=== PATIENT | male | born 1955 | race African-American/Black ===

== ENCOUNTER 2018-11-30 10:38 | Inpatient (IN) ==
[2018-11-30 11:10] LABS: BASO# 0.02 X1000 (0.0-0.2); BASO% 0.1 % (0.0-0.8); HEMATOCRIT 46.3 % (42.0-52.0); HEMOGLOBIN 15.4 g/dL (14.0-18.0); IMM GRAN# 0.04 X1000 (0.0-0.04); IMM GRAN% 0.2 % (0.0-0.5); LYMPH# 1.26 X1000 (1.2-3.4); LYMPH% 7.3 % (20.5-51.1); MCH 29.5 PG (27-31); MCHC 33.3 g/dL (33-37); MCV 88.7 FL (81-99); MONO# 0.84 X1000 (0.11-0.59); MONO% 4.9 % (1.7-9.3); MPV 12.5 FL (7.4-10.4); NEUT# 15.14 X1000 (1.4-6.5); NEUT% 87.5 % (42.2-75.2); PLT 228 X1000 (130-400); RBC 5.22 XMIL (4.7-6.1); RDW 13.6 % (11.5-14.5)
[2018-11-30] MEDS ORDERED: NS 1,000 ML IV ONE ×2 (11:17→11:57)
--- NOTE | 2018-11-30 11:27 | Diag Imaging Result Doc PS360 ---
EXAM: CHEST-2 VIEWS HISTORY: wt loss new onset diabetes TECHNIQUE: Chest two views COMPARISON: 09/06/2014 FINDINGS: The lungs are well expanded. The heart is not enlarged. The vessels are not distended. There are no infiltrates. No pleural effusions. IMPRESSION: No acute abnormality. Electronically signed by Deep Jenkins 11/30/2018 11:25 AM
[2018-11-30 11:30] LABS: SEGS 88 % (42-75)
[2018-11-30 11:31] LABS: LYMPHS 8 % (21-51); MONO 4 % (1-9)
[2018-11-30 11:38] LABS: ALBUMIN 3.7 g/dL (3.5-5.0); CALCIUM 9.9 mg/dL (8.8-10.2); CREATININE 2.8 mg/dL (0.7-1.2); POTASSIUM 5.1 mmol/L (3.5-5.1); TOTAL BILIRUBIN 0.7 mg/dL (0.20-1.00); TOTAL PROTEIN 7.9 g/dL (6.3-8.3)
[2018-11-30 11:40] LABS: BILIRUBIN URINE NEGATIVE (NEGATIVE); BLOOD URINE NEGATIVE (NEGATIVE); CLARITY CLEAR (CLEAR); COLOR YELLOW; KETONE URINE 1+(Small) mg/dL (NEGATIVE); LEUKOCYTES URINE NEGATIVE (NEGATIVE); NITRITE URINE NEGATIVE (NEGATIVE); PROTEIN URINE NEGATIVE (NEGATIVE); UROBILINOGEN URINE NORMAL
[2018-11-30 11:41] LABS: URINE EPITHELIAL CELLS <10 /HPF (<10); URINE SOURCE CLEAN CATCH
[2018-11-30 11:45] LABS: ALLEN TEST NO; BLOOD TYPE VENOUS; pH(98.6) 7.34 (7.35-7.45)
[2018-11-30] MEDS ORDERED: HUMALOG (PARKWAY) IV ONE (11:51)
[2018-11-30] MEDS ORDERED: HUMULIN R (PARKWAY) 100 UNITS in NS 100 ML IV SCH (12:00)
[2018-11-30 12:18] LABS: CHOLESTEROL 277 mg/dL (0-200); HDL 52 mg/dL (35-55); HEMOGLOBIN A1C 14.6 % (4.8-6.0); LDL 196 mg/dL; TRIGLYCERIDES 147 mg/dL (39-160); VLDL 29 mg/dL
[2018-11-30 13:46] LABS: CALCIUM 9.3 mg/dL (8.8-10.2); CREATININE 2.8 mg/dL (0.7-1.2); MAGNESIUM 3.4 mg/dL (1.5-2.7); PHOSPHORUS 3.8 mg/dL (2.7-4.5); POTASSIUM 4.1 mmol/L (3.5-5.1)
[2018-11-30] MEDS ORDERED: NS 1,000 ML ONE (14:14)
[2018-11-30] MEDS ORDERED: D50W SYRINGE IV PRN (14:17)
[2018-11-30] MEDS ORDERED: POTASSIUM CHLORIDE 40 MEQ/SWI 40 MEQ/100 ML IVPB IV PRN (14:17)
[2018-11-30] MEDS ORDERED: POTASSIUM CHLORIDE 20% LIQUID PO PRN (14:17)
[2018-11-30] MEDS ORDERED: POTASSIUM CHLORIDE 10% LIQUID PO PRN (14:17)
[2018-11-30] MEDS ORDERED: HUMULIN R 100 UNIT in NS 99 ML IV SCH (14:17)
[2018-11-30] MEDS ORDERED: POTASSIUM CHLORIDE 20 MEQ/SWI 20 MEQ/100 ML IVPB IV PRN (14:17)
[2018-11-30] MEDS ORDERED: ZOFRAN IV PRN (14:59)
[2018-11-30] MEDS ORDERED: MYCELEX TROCHE PO SCH (15:00)
[2018-11-30] MEDS: NS 1,000 ML IV SCH ×5 (15:00→21:54)
[2018-11-30] MEDS: MYCELEX TROCHE PO SCH ×3 (15:34→21:54)
[2018-11-30] MEDS: SODIUM CHLORIDE 0.9% INJ SCH (15:34)
[2018-11-30] MEDS: PROTONIX IV SCH (15:34)
[2018-11-30 15:35] LABS: URINE SOURCE CATH
[2018-11-30 15:38] LABS: BILIRUBIN URINE NEGATIVE (NEGATIVE); BLOOD URINE NEGATIVE (NEGATIVE); CLARITY CLEAR (CLEAR); COLOR YELLOW; KETONE URINE 1+(Small) mg/dL (NEGATIVE); LEUKOCYTES URINE NEGATIVE (NEGATIVE); NITRITE URINE NEGATIVE (NEGATIVE); PROTEIN URINE NEGATIVE (NEGATIVE); SP GRAVITY URINE 1.015; UROBILINOGEN URINE NORMAL
[2018-11-30 17:41] LABS: CALCIUM 9.5 mg/dL (8.8-10.2); CREATININE 2.5 mg/dL (0.7-1.2); MAGNESIUM 3.4 mg/dL (1.5-2.7); PHOSPHORUS 2.5 mg/dL (2.7-4.5)
--- NOTE | 2018-11-30 18:57 | HISTORY AND PHYSICAL ---
CHIEF COMPLAINT: "My blood sugar is high. HISTORY OF PRESENT ILLNESS: This is a 63-year-old gentleman with a prior history of hypertension, who presents to the emergency room complaining of elevated blood sugar. The patient states he was seen by his PCP yesterday for a 28 pound weight loss, frequent urination and thirst. At that time he had an A1c of 14, blood sugar was elevated. He comes in today with an increase in symptoms. At the time of my exam he is lethargic. PAST MEDICAL HISTORY: Hypertension. PAST SURGICAL HISTORY: Right total hip, back and knee surgery. SOCIAL HISTORY: He denies alcohol, tobacco, or illicit drug use. ALLERGIES: No known drug allergies. HOME MEDICATIONS: Lisinopril 5 mg p.o. daily. REVIEW OF SYSTEMS: Discussed with patient with pertinent positives stated in the HPI. He denies any syncope, dizziness; any chest pain, palpitations; any shortness of breath, cough, fever, chills; any nausea, vomiting, diarrhea, constipation, black or bloody vomitus or stools; any hematuria or dysuria. PHYSICAL EXAMINATION: GENERAL: This is a 63-year-old gentleman who is lying in the bed in ICU in no distress. VITAL SIGNS: Blood pressure is 99/60 with a heart rate of 90, respirations are 20, temperature is 98.8 oral, room air saturations 96-98%. HEENT: Eyes: Pupils are equal, round, react to light. EOMs are intact. Sclerae are anicteric. Head is normocephalic, atraumatic. Mucous membranes are dry. PULMONARY: Breath sounds are clear with no increased work of breathing. Chest rises and falls symmetrically with respiration. Chest wall is nontender to palpation. GASTROINTESTINAL: Soft, nontender, nondistended with bowel sounds in all 4 quadrants. GENITOURINARY: He has no CVA nor suprapubic tenderness. NEUROLOGIC: He is oriented x3. He is somewhat lethargic. SKIN: Warm and dry. LABS: WBC is 17.3 with hemoglobin 15.4, hematocrit 46.3, platelets of 228. Sodium is 139, potassium 5.1, chloride 89, CO2 is 22 with an anion gap of 26, BUN 65, creatinine 2.8 with a glucose of 872. Hemoglobin A1c is 14.6. Chest x-ray reveals no acute abnormality. Lungs are well expanded. Heart is not enlarged. Vessels are not distended. There are no infiltrates. No pleural effusion. ASSESSMENT AND PLAN: 1. Diabetic ketoacidosis. 2. New onset diabetes mellitus with a hemoglobin A1c of 14.6. 3. Acute kidney injury secondary to #1. 4. Leukocytosis. PLAN: The patient has been admitted to ICU. He has been placed on DKA protocol. We will obtain a urine culture and blood cultures. We will trend repeat a CBC, CMP in the morning. For DVT prophylaxis, will use Lovenox and GI prophylaxis we will use Protonix. Further treatments pending hospital course. Dictated by CINDA Powers for Aniket Rice MD This chart was documented by, CINDA Powers and accurately reflects the services performed, treatment plan and medical decisions as attested by the providers signature Aniket Rice MD. cc: CINDA Powers MD
--- NOTE | 2018-11-30 19:07 | PROVIDER DOCUMENTATION ---
This chart was entered by Svetlana Schulz Scribe, acting as scribe for Kimberly Morgan MD. HPI-General Adult - General Chief Complaint: High Blood Sugar Stated Complaint: ELEVATED BS / INFECTION IN MOUTH Time Seen by Provider: 11/30/18 10:42 Source: patient, family () Allergies/Adverse Reactions: Patient Allergies Allergy/AdvReac Type Severity Reaction Status Date / Time No Known Allergies Allergy Verified 11/30/18 11:07 Home Medications: Home Medication List Medication Instructions Recorded Confirmed Last Taken Type LISINOpril [Prinivil] 5 mg PO DAILY 03/24/18 11/30/18 11/30/18 History - History of Present Illness -Gen Adult Nature of Presenting Problems: 63 yobm presents to the ed with . pt was seen at pcp yesterday for 28lb weight loss, frequent urination, thirst, dry mouth andd had A1C over 14. pt has no past dx of DM. in triage BGFS <500 Location of Pain/Injury: reports: none Pain Radiation: reports: no radiation Quality of Pain: reports: none Severity: reports: moderate (new dm dx) Timing: reports: still present Context/Activities at Onset: reports: light activity Modifying Factors: improves with: nothing Associated Symptoms: reports: EENT symptoms, genitourinary problems, loss of appetite, malaise, other (fernanda loss). denies: back/neck pain, cough, fever/ chills, headaches, nausea, shortness of breath, vomiting, trouble walking Similar Symptoms Previously?: Yes Recently seen or treated by another doctor?: Yes (saw pcp yesterday) - Diabetes Related Context Context: reports: high blood sugar (no previous dx of DM) Review of Systems - Adult - REVIEW OF SYSTEMS - ADULT Constitutional: reports: see HPI, sharron, weight loss (28lbs 2 months) Eyes: reports: blurred vision Ears, Nose, Mouth & Throat: reports: no symptoms reported Cardiovascular: denies: chest pain, palpitations Respiratory: denies: shortness of breath, wheezing Gastrointestinal: reports: poor appetite. denies: diarrhea, nausea, vomiting Genitourinary: reports: no symptoms reported Musculoskeletal: reports: no symptoms reported Integumentary: reports: no symptoms reported Neurological: denies: dizziness/vertigo, headache/migraines Psychiatric: reports: no symptoms reported Endocrine: reports: see HPI, increased thirst, polyuria Hematologic/Lymphatic: reports: no symptoms reported Allergic/Immunologic: reports: no symptoms reported All Other Systems: Reviewed and Negative Past History - Adult - PAST MEDICAL HISTORY-ADULT Review of Records: reports: Old Records Reviewed, Nursing Assessment Review, Medications Reviewed, Social history reviewed & non-contributory. Major Childhood Illnesses: reports: denies history Cardiovascular: reports: HTN Respiratory: reports: denies history Gastrointestinal: reports: denies history Genitourinary: reports: denies history Musculoskeletal: reports: neck/back injury Neurological: reports: denies history Endocrine/Immune: reports: denies history Other Conditions: reports: denies history - PRIOR SURGERIES/PROCEDURES Surgical/Procedure History: reports: joint replacement, back/neck - IMMUNIZATION STATUS Childhood Immunizations: See Nurse Assessment Flu Vaccine: See Nurse Assessment - FAMILY HISTORY Family History: reviewed, not pertinent - SOCIAL HISTORY Smoking: denies Substance Use: denies Alcohol Use Frequency: never Living Situation: family Physical Exam-General - PHYSICAL EXAM-ADULT Initial Vital Signs Reviewed: Yes - CONSTITUTIONAL General Appearance: alert, no apparent distress, obese - EYES Eyes: PERRL/EOMI, pink conjunctivae - HEAD, EARS, NOSE, MOUTH & THROAT HENMT: normal ENT inspection. negative: moist mucous membranes (dry oral) - NECK Neck: full range of motion, normal inspection - RESPIRATORY Respiratory: chest non-tender, lungs clear, normal breath sounds - CARDIOVASCULAR Cardiovascular: normal peripheral pulses, tachycardia (123) - GASTROINTESTINAL (ABDOMEN) Abdominal Exam: normal bowel sounds, non tender, soft - LYMPHATIC Lymphatic: no adenopathy - MUSCULOSKELETAL Back Exam: normal inspection, no CVA tenderness, no vertebral tenderness Extremity: normal range of motion, normal gait, normal inspection - SKIN Integumentary: normal color, normal turgor, warm/dry - NEUROLOGIC Neurologic: grossly normal, no motor/sensory deficits - PSYCHIATRIC Psych/Mental Status: normal mood/affect, normal thought content, normal thought process, oriented x 3 Progress - PLAN OF CARE/RESULTS Progress/Plan/Lab Results: Vital Signs - 8 hr 11/30/18 10:39 11/30/18 11:11 Temperature 98 F Pulse Rate 123 H 95 H Respiratory Rate 20 21 Blood Pressure 104/65 O2 Sat by Pulse Oximetry 98 96 Laboratory Results - last 24 hr 11/30/18 11:00 WBC 17.30 H RBC 5.22 Hgb 15.4 Hct 46.3 MCV 88.7 MCH 29.5 MCHC 33.3 RDW Std Deviation 13.6 Plt Count 228 MPV 12.5 H Immature Gran % (Auto) 0.2 Neut % (Auto) 87.5 H Lymph % (Auto) 7.3 L Green % (Auto) 4.9 Eos % (Auto) 0.0 Baso % (Auto) 0.1 Immature Gran # (Auto) 0.04 Neut # (Auto) 15.14 H Lymph # (Auto) 1.26 Green # (Auto) 0.84 H Eos # (Auto) 0.00 Baso # (Auto) 0.02 Orders Category Date Time Status FSBS [Finger Stick Blood Sugar (ED)] DIRECTED Care 11/30/18 10:48 Active Saline Loc NOW Care 11/30/18 10:52 Active CHEST-2 VIEWS [RAD] Stat Exams 11/30/18 10:45 Completed ABG [RESP] Routine Lab 11/30/18 10:45 Ordered ACETONE SERUM [CHEM] Stat Lab 11/30/18 11:00 Received CBC WITH DIFF [HEME] Stat Lab 11/30/18 11:00 Results COMPREHENSIVE METABOLIC PANEL [CHEM] Stat Lab 11/30/18 11:[address] W/POSS RFLX CULT [URINALYSIS] Stat Lab 11/30/18 10:53 Received 0.9% Sodium Chloride Inj [Ns] 1,000 ml Med 11/30/18 11:17 Active IV 999 mls/hr EKG [EKG] Stat Ther 11/30/18 10:45 Ordered Result Diagrams: 11/30/18 11:00 11/30/18 11:00 - REASSESSMENT Reassessment #1 Time Reassessed: 11:39 Status: unchanged Reassessment Comment: resting in bed Reassessment #2 Time Reassessed: 11:50 (bgl 872) Status: unchanged - XRAY 1 XRAY: Bilateral XRAY Study: Chest (EXAM: CHEST-2 VIEWS HISTORY: wt loss new onset diabetes TECHNIQUE: Chest two views COMPARISON: 09/06/2014 FINDINGS: The lungs are well expanded. The heart is not enlarged. The vessels are not distended. There are no infiltrates. No pleural effusions. IMPRESSION: No acute abnormality. Electronically signed by Deep Jenkins 11/30/2018 11:25 AM 1125 Interpreting Physician: Deep Jenkins MD Dictated Date/Time: 11/30/18 1124 cc: Kimberly Morgan MD; Edmundo Hickey MD) - CONSULTS/PCP/HOSPITALIST Notification #1 *Consult/PCP/Hospitalist*: hospitalist dr smith Time Discussed: 11:57 Reason/Comments: new onset DM type 2 Consult Disposition: Admit Departure - Departure Date of Disposition Decision: 11/30/18 Time of Disposition Decision: 11:51 DIAGNOSIS: New onset type 2 diabetes mellitus, Hyperglycemia, Weight loss, unintentional, Tachycardia Disposition: ADMITTED INPATIENT 09 Certified Medical Emergency: Emergent Condition: Stable Referrals and Follow-Ups: Edmundo Hickey MD [Primary Care Provider] - - Critical Care Note This patient required my direct & personal management of CC.: Yes Total Time (mins): 36 Critical Care Statement: This patient required my direct personal management to treat or rule out processes, the absence of which, could potentiallly result in sudden, clinically significant life or limb threatening deterioration. Attestation - Physician/ GENEVA Attestation Patient care was provided by Advanced Practice Provider:: No The physician spent face to face time with patient:: Yes Advanced Practice Provider documentation review:: Supervising physician onsite and consulted in the evaluation and care of this patient. The physician did have a face to face encounter with the patient. This chart was documented by the indicated scribe, (Svetlana Schulz Scribe) and accurately reflects the services I performed and decisions made by me, Kimberly Morgan MD, as attested by the provider's signature.
[2018-11-30] MEDS: D5 NS 1,000 ML IV SCH (19:21)
[2018-11-30 20:40] LABS: BLOOD TYPE ARTERIAL; HCO3-(ACT) 26.5 mmoll (20.0-26.0); METHB 0.7 % (0.0-1.5); O2(CT) 20.8 mL/dL (15.0-23.0); O2HB 96.5 % (95.0-99.0); PCO2(98.6) 36 mmHg (35-45); PO2(98.6) 159 mmHg (60-100); SAMPLE BLOOD; SAO2 99.7 % (95.0-100.0); THB 15.1 g/dL (11.5-17.4); pH(98.6) 7.46 (7.35-7.45)
[2018-11-30 20:46] LABS: ALLEN TEST YES; MODALITY ROOM AIR
[2018-11-30 21:10] LABS: CALCIUM 9.3 mg/dL (8.8-10.2); MAGNESIUM 3.3 mg/dL (1.5-2.7); PHOSPHORUS 1.5 mg/dL (2.7-4.5)
[2018-11-30] MEDS ORDERED: D50W SYRINGE IV ONE (21:38)
[2018-12-01] MEDS: D5 NS 1,000 ML IV SCH (02:16)
[2018-12-01 06:58] LABS: BASO# 0.02 X1000 (0.0-0.2); BASO% 0.1 % (0.0-0.8); EOS# 0.02 X1000 (0.0-0.7); EOS% 0.1 % (0.0-10.0); HEMATOCRIT 45.9 % (42.0-52.0); HEMOGLOBIN 14.9 g/dL (14.0-18.0); IMM GRAN# 0.05 X1000 (0.0-0.04); IMM GRAN% 0.2 % (0.0-0.5); LYMPH# 2.06 X1000 (1.2-3.4); LYMPH% 10.2 % (20.5-51.1); MCH 28.9 PG (27-31); MCHC 32.5 g/dL (33-37); MCV 89.1 FL (81-99); MONO# 1.26 X1000 (0.11-0.59); MONO% 6.3 % (1.7-9.3); MPV 12.5 FL (7.4-10.4); NEUT# 16.72 X1000 (1.4-6.5); NEUT% 83.1 % (42.2-75.2); PLT 197 X1000 (130-400); RBC 5.15 XMIL (4.7-6.1); RDW 14.1 % (11.5-14.5); WBC 20.13 X1000 (4.8-10.8)
[2018-12-01] MEDS ORDERED: HUMULIN R DOSE (PARKWAY) SUBQ SCH (07:00)
[2018-12-01 07:17] LABS: AGAP 15; ALBUMIN 3.2 g/dL (3.5-5.0); ALKALINE PHOSPHATASE 98 U/L (32-122); BUN 55 mg/dL (8-22); CALCIUM 9.6 mg/dL (8.8-10.2); CHLORIDE 113 mmol/L (98-107); COSMO 327; CREATININE 1.8 mg/dL (0.7-1.2); DIRECT BILIRUBIN < 0.20 mg/dL (0.00-0.20); ESTIMATED GFR 38; GLUCOSE 290 mg/dL (70-104); GOT 18 U/L (10-34); GPT 26 U/L (10-44); POTASSIUM 4.6 mmol/L (3.5-5.1); SODIUM 152 mmol/L (136-145); TCO2 24 mmol/L (25-35); TOTAL PROTEIN 6.9 g/dL (6.3-8.3)
[2018-12-01] MEDS: NS 1,000 ML IV SCH (07:42)
[2018-12-01] MEDS: LOVENOX SUBQ SCH (08:14)
[2018-12-01] MEDS: MYCELEX TROCHE PO SCH ×5 (08:15→20:34)
[2018-12-01] MEDS ORDERED: INSULIN PEN NEEDLES MISC PRN (08:53)
[2018-12-01 09:18] LABS: LYMPHS 9 % (21-51); MONO 6 % (1-9); SEGS 85 % (42-75)
--- NOTE | 2018-12-01 09:56 | PROGRESS NOTE ---
DATE: 12/01/2018 SUBJECTIVE: Patient reports feeling much better. He was more sleepy yesterday. Today, he feels less nauseated. However, reports feeling still very thirsty. OBJECTIVE: Vital Signs: Temperature 97.0 degrees, heart rate 84, respiratory rate 16, blood pressure 167/80, O2 saturation 99% on room air. General: This is a 63-year- old male, lying in bed, in no acute distress. HEENT: Head is normocephalic, atraumatic. Mucous membranes dry. Neck: No JVD noted. No carotid bruits. No lymphadenopathy. No thyromegaly. Cardiovascular: S1, S2 heard. No murmurs, gallops, or rubs. Regular rate and rhythm. Respiratory: Clear bilaterally to auscultation. No work of breathing or using accessory muscles. Abdomen: Soft, nontender to palpation. Bowel sounds present. No organomegaly. Extremities: No clubbing cyanosis, or edema. Peripheral pulses present in both legs. Neurological: Patient is alert and oriented x3. Moves 4 extremities. Cranial nerves 2-12 grossly normal. LABORATORY DATA: White cell count 20.1, hemoglobin 14.9, hematocrit 45.9, platelets 197,000. Sodium 152, with potassium 4.6, bicarbonate 24, anion gap 15, BUN 55, and creatinine 1.8, and glucose 290. Hemoglobin A1c is 14.6. Cholesterol 277. ASSESSMENT AND PLAN: 1. Hyperosmolar nonketotic hyperglycemia. Actually, patient was admitted to the hospital because of elevated blood sugars, but now blood sugars are better controlled. This one is basically a new onset diabetes mellitus. Patient has been on insulin drip. Blood sugars are better controlled. Unfortunately, the sodium is still high, so what I am going to do is to stop insulin drip. We will start Lantus 15 units b.i.d. We will do Humalog sliding scale high doses and see how this patient does. We will continue to check blood sugars every 4 hours. We will go from there. 2. Hypernatremia. We are going to use D5W, and will check a basic metabolic panel later on today around 1 p.m., and we will adjust fluids and medications accordingly. 3. Acute kidney injury secondary to condition #1. At this point, I do not what is his baseline. We will continue hydrating this patient and will check basic metabolic panel daily. 4. Leukocytosis. I do not see any source of infection. At this point, we will continue to monitor. Urine and blood culture has been ordered. If tomorrow white cell count is still elevated, we will start prophylactically antibiotics, and we will go from there. cc: Aniket Rice MD MTDD
[2018-12-01] MEDS: D5W 1,000 ML IV SCH ×2 (10:50→17:25)
[2018-12-01] MEDS: BASAGLAR SUBQ SCH ×2 (10:50→20:34)
[2018-12-01] MEDS: HUMALOG DOSE (PARKWAY) SUBQ SCH ×3 (10:51→20:34)
[2018-12-01 13:58] LABS: CALCIUM 9.1 mg/dL (8.8-10.2); CREATININE 1.6 mg/dL (0.7-1.2); POTASSIUM 3.9 mmol/L (3.5-5.1)
[2018-12-01] MEDS: SODIUM CHLORIDE 0.9% INJ SCH (15:44)
[2018-12-01] MEDS: PROTONIX IV SCH (15:44)
[2018-12-01] MEDS: LIPITOR PO SCH (20:34)
[2018-12-02] MEDS: D5W 1,000 ML IV SCH ×4 (01:00→22:11)
[2018-12-02] MEDS: HUMALOG DOSE (PARKWAY) SUBQ SCH ×5 (04:29→22:08)
[2018-12-02 06:25] LABS: BASO# 0.03 X1000 (0.0-0.2); BASO% 0.3 % (0.0-0.8); EOS# 0.12 X1000 (0.0-0.7); HEMATOCRIT 43.3 % (42.0-52.0); HEMOGLOBIN 14.2 g/dL (14.0-18.0); IMM GRAN# 0.04 X1000 (0.0-0.04); IMM GRAN% 0.3 % (0.0-0.5); LYMPH# 2.48 X1000 (1.2-3.4); LYMPH% 21.6 % (20.5-51.1); MCH 29.5 PG (27-31); MCHC 32.8 g/dL (33-37); MCV 89.8 FL (81-99); MONO# 1.02 X1000 (0.11-0.59); MONO% 8.9 % (1.7-9.3); MPV 11.8 FL (7.4-10.4); NEUT# 7.78 X1000 (1.4-6.5); NEUT% 67.9 % (42.2-75.2); PLT 127 X1000 (130-400); RBC 4.82 XMIL (4.7-6.1); RDW 13.8 % (11.5-14.5); WBC 11.47 X1000 (4.8-10.8)
[2018-12-02 06:48] LABS: AGAP 10; ALBUMIN 2.9 g/dL (3.5-5.0); ALKALINE PHOSPHATASE 80 U/L (32-122); BUN 26 mg/dL (8-22); CALCIUM 8.8 mg/dL (8.8-10.2); CHLORIDE 108 mmol/L (98-107); COSMO 302; CREATININE 1.3 mg/dL (0.7-1.2); DIRECT BILIRUBIN < 0.20 mg/dL (0.00-0.20); ESTIMATED GFR 56; GLUCOSE 277 mg/dL (70-104); GOT 20 U/L (10-34); GPT 21 U/L (10-44); POTASSIUM 4.5 mmol/L (3.5-5.1); SODIUM 144 mmol/L (136-145); TCO2 25 mmol/L (25-35); TOTAL PROTEIN 6.1 g/dL (6.3-8.3)
[2018-12-02] MEDS: LOVENOX SUBQ SCH (09:15)
[2018-12-02] MEDS: MYCELEX TROCHE PO SCH ×5 (09:15→21:58)
[2018-12-02] MEDS: BASAGLAR SUBQ SCH ×2 (09:15→22:10)
[2018-12-02] MEDS ORDERED: ADENOCARD ONE (12:37)
[2018-12-02] MEDS ORDERED: ADENOCARD IV ONE (12:42)
[2018-12-02] MEDS: LOPRESSOR PO SCH ×2 (13:16→21:57)
--- NOTE | 2018-12-02 13:30 | EKG Report ---
Test Performed on : 12/02/2018 12:42:06 PM Test Reason : blood sugar Blood Pressure : / mmHG Vent. Rate : 100 BPM Atrial Rate : 100 BPM P-R Int : 142 ms QRS Dur : 086 ms QT Int : 322 ms P-R-T Axes : 063 016 061 degrees QTc Int : 415 ms Normal sinus rhythm. Normal ECG When compared with ECG of 02-DEC-2018 12:39, (Unconfirmed) Vent. rate has decreased BY 79 BPM Nonspecific T wave abnormality no longer evident in Inferior leads Nonspecific T wave abnormality no longer evident in Lateral leads Unconfirmed Result
--- NOTE | 2018-12-02 13:32 | EKG Report ---
Test Performed on : 12/02/2018 12:39:20 PM Test Reason : elevated heart rate Blood Pressure : / mmHG Vent. Rate : 179 BPM Atrial Rate : 179 BPM P-R Int : 090 ms QRS Dur : 082 ms QT Int : 250 ms P-R-T Axes : 000 010 221 degrees QTc Int : 431 ms Sinus tachycardia. with short VA Nonspecific T wave abnormality Abnormal ECG When compared with ECG of 30-APR-2016 10:46, VA interval has decreased Vent. rate has increased BY 118 BPM Nonspecific T wave abnormality now evident in Inferior leads Nonspecific T wave abnormality, worse in Lateral leads Unconfirmed Result
--- NOTE | 2018-12-02 13:52 | PROGRESS NOTE ---
DATE: 12/02/2018 SUBJECTIVE: The patient complains of having racing heartbeat that started just a few minutes prior to seeing him. He denies having any other complaints. OBJECTIVE: Vital Signs: Temperature 97.6 degrees, pulse 74 per minute, respiratory rate 14 per minute, blood pressure 139/84, pulse oximetry 99% on 2 L of oxygen via nasal cannula. The patient was noted to have supraventricular tachycardia on monitor with a heart rate of approximately 178 beats per minute however. Cardiovascular: First and second heart sounds are audible with regular tachycardia. No murmurs are noted. Respiratory: Bilateral lung air entry is good without any rales or rhonchi. Gastrointestinal: Abdomen is soft and nondistended. Normal bowel sounds are present. DIAGNOSTIC DATA: CBC shows WBC count of 11.47 and platelet count of 127,000. In comparison, his WBC count was 20.13 yesterday and platelet count was found to be 197,000 yesterday. BUN and creatinine are found to be 26 and 1.3. Rest of the comprehensive metabolic panel is nondiagnostic except for slight low albumin level of 2.9. In comparison, his creatinine levels were 1.6 yesterday and 2.8 on admission on 11/30/2018. IMPRESSION: 1. Hyperosmolar nonketotic hyperglycemia with new onset type 2 diabetes mellitus. 2. Supraventricular tachycardia. 3. Acute kidney injury secondary to prerenal azotemia. 4. Leukocytosis. 5. Thrombocytopenia. 6. Dyslipidemia. PLAN: The patient was found to have supraventricular tachycardia for which he was asked to do a Valsalva maneuver that failed to improve his PSVT. Carotid massage was provided and that did not help either. After that, the patient was given 6 mg of adenosine IV that converted him to regular sinus rhythm. I have started him on metoprolol 25 mg orally twice daily because of that. He will continue his IV fluids along with lispro insulin as per sliding scale. He will also continue with glargine insulin 15 units subcutaneously twice daily. Patient has developed thrombocytopenia which could be secondary to enoxaparin. Would therefore discontinue enoxaparin for now. We will continue with atorvastatin 40 mg orally once daily at bedtime for his dyslipidemia. Further recommendations will be given as per hospital course. cc: MD ELIZABETH Zaragoza
[2018-12-02 14:27] LABS: AGAP 9; BUN 20 mg/dL (8-22); CHLORIDE 103 mmol/L (98-107); COSMO 292; CREATININE 1.2 mg/dL (0.7-1.2); ESTIMATED GFR > 60; GLUCOSE 279 mg/dL (70-104); POTASSIUM 3.8 mmol/L (3.5-5.1); SODIUM 140 mmol/L (136-145); TCO2 28 mmol/L (25-35)
[2018-12-02] MEDS: SODIUM CHLORIDE 0.9% INJ SCH (15:31)
[2018-12-02] MEDS: PROTONIX IV SCH (15:31)
[2018-12-02] MEDS: LIPITOR PO SCH (21:57)
[2018-12-03] MEDS: HUMALOG DOSE (PARKWAY) SUBQ SCH ×6 (02:00→22:34)
[2018-12-03] MEDS: D5W 1,000 ML IV SCH (04:17)
[2018-12-03 07:40] LABS: BASO# 0.02 X1000 (0.0-0.2); BASO% 0.2 % (0.0-0.8); EOS# 0.17 X1000 (0.0-0.7); EOS% 1.9 % (0.0-10.0); HEMATOCRIT 41.3 % (42.0-52.0); HEMOGLOBIN 13.5 g/dL (14.0-18.0); IMM GRAN# 0.02 X1000 (0.0-0.04); IMM GRAN% 0.2 % (0.0-0.5); LYMPH# 2.69 X1000 (1.2-3.4); LYMPH% 30.3 % (20.5-51.1); MCH 29.2 PG (27-31); MCHC 32.7 g/dL (33-37); MCV 89.4 FL (81-99); MONO# 0.66 X1000 (0.11-0.59); MONO% 7.4 % (1.7-9.3); MPV 11.6 FL (7.4-10.4); NEUT# 5.32 X1000 (1.4-6.5); PLT 119 X1000 (130-400); RBC 4.62 XMIL (4.7-6.1); RDW 13.1 % (11.5-14.5); WBC 8.88 X1000 (4.8-10.8)
[2018-12-03 08:38] LABS: AGAP 9; ALBUMIN 2.7 g/dL (3.5-5.0); ALKALINE PHOSPHATASE 82 U/L (32-122); BUN 15 mg/dL (8-22); CALCIUM 8.7 mg/dL (8.8-10.2); CHLORIDE 101 mmol/L (98-107); COSMO 282; CREATININE 1.1 mg/dL (0.7-1.2); ESTIMATED GFR > 60; GLUCOSE 233 mg/dL (70-104); GOT 14 U/L (10-34); GPT 16 U/L (10-44); POTASSIUM 3.5 mmol/L (3.5-5.1); SODIUM 137 mmol/L (136-145); TCO2 27 mmol/L (25-35); TOTAL PROTEIN 5.3 g/dL (6.3-8.3)
[2018-12-03] MEDS: BASAGLAR SUBQ SCH ×2 (09:42→22:34)
[2018-12-03] MEDS: LOPRESSOR PO SCH ×2 (09:43→22:35)
[2018-12-03] MEDS: MYCELEX TROCHE PO SCH ×5 (09:43→22:36)
--- NOTE | 2018-12-03 11:10 | PROGRESS NOTE ---
DATE: 12/03/2018 SUBJECTIVE: Patient denies having any acute complaints this morning. OBJECTIVE: Vital Signs: Temperature 97.7 degrees, pulse 64 per minute, respiratory rate 14 per minute, blood pressure 117/74, pulse oximetry 98% on 2 L of oxygen via nasal cannula. General: Patient is alert and oriented x3. He does not appear to be in any acute distress this morning. Cardiovascular System: First and second heart sounds are audible without any murmurs or gallops. Respiratory System: No respiratory distress noted. Bilateral lung air entry is good without any rales or rhonchi. Gastrointestinal System: Abdomen is soft and nondistended. Normal bowel sounds are present. DIAGNOSTIC DATA: CBC shows a platelet count of 119 this morning. His platelet counts were 197 two days ago. Comprehensive metabolic panel done this morning shows glucose levels of 233. Rest of the CMP is nondiagnostic. IMPRESSION: 1. Hyperosmolar nonketotic hyperglycemia. 2. Episode of paroxysmal supraventricular tachycardia that has now resolved. 3. Acute kidney injury that has also resolved with now normal BUN and creatinine today. 4. Thrombocytopenia, likely secondary to Lovenox that has been discontinued yesterday. 5. Dyslipidemia. PLAN: The patient will be transferred out of ICU today since his condition has improved. He will continue with IV fluids, although I am going to discontinue D5W. He will be kept on Lantus insulin at 15 units subcutaneously twice daily, and I am going to keep him on lispro insulin every 6 hours as per sliding scale as well. I am going to start him on metformin 1 g orally twice daily, however, and monitor his platelet counts. He can probably be discharged home by tomorrow if his platelet counts are stabilized. cc: Jaren Pierre MD
[2018-12-03] MEDS: NS 1,000 ML IV SCH ×2 (12:15→22:36)
[2018-12-03] MEDS: GLUCOPHAGE PO SCH (16:42)
[2018-12-03] MEDS: LIPITOR PO SCH (22:36)
[2018-12-04] MEDS: HUMALOG DOSE (PARKWAY) SUBQ SCH ×2 (05:32→10:45)
[2018-12-04] MEDS: NS 1,000 ML IV SCH (06:52)
[2018-12-04] MEDS: GLUCOPHAGE PO SCH (08:40)
[2018-12-04] MEDS: MYCELEX TROCHE PO SCH ×2 (08:40→11:49)
[2018-12-04] MEDS: LOPRESSOR PO SCH (08:40)
[2018-12-04] MEDS: BASAGLAR SUBQ SCH (08:40)
[2018-12-04 11:51] VITALS: BP 137/81
[2018-12-04 13:12] LABS: BASO# 0.03 X1000 (0.0-0.2); BASO% 0.4 % (0.0-0.8); EOS# 0.17 X1000 (0.0-0.7); HEMATOCRIT 39.3 % (42.0-52.0); HEMOGLOBIN 12.9 g/dL (14.0-18.0); IMM GRAN# 0.01 X1000 (0.0-0.04); IMM GRAN% 0.1 % (0.0-0.5); LYMPH# 2.18 X1000 (1.2-3.4); LYMPH% 25.7 % (20.5-51.1); MCH 28.9 PG (27-31); MCHC 32.8 g/dL (33-37); MCV 87.9 FL (81-99); MONO% 10.6 % (1.7-9.3); MPV 11.2 FL (7.4-10.4); NEUT# 5.18 X1000 (1.4-6.5); NEUT% 61.2 % (42.2-75.2); PLT 96 X1000 (130-400); RBC 4.47 XMIL (4.7-6.1); RDW 13.1 % (11.5-14.5); WBC 8.47 X1000 (4.8-10.8)
--- NOTE | 2018-12-04 13:52 | DISCHARGE SUMMARY ---
ADMISSION DATE: 11/30/2018 DISCHARGE DATE: 12/04/2018 DISCHARGE DIAGNOSES: 1. Hyperosmolar nonketotic hyperglycemia. 2. Acute kidney injury secondary to prerenal azotemia. 3. A single episode of paroxysmal supraventricular tachycardia. 4. Thrombocytopenia. 5. Dyslipidemia. HOSPITAL COURSE: Mr. Juarez is a 63-year-old gentleman who was admitted to the hospital on 11/30/2018 when he presented to the emergency department complaining of elevated blood glucose levels. He was diagnosed as having diabetic ketoacidosis and therefore admitted to the hospital for further care. He was having also weight loss and increased thirst. His hemoglobin A1c was elevated at 14%. He was admitted to the hospital in the intensive care unit and was given insulin as per diabetic ketoacidosis protocol. He was also given IV fluids and his condition gradually improved. Later, it was thought that he had nonketotic hyperosmolar hyperglycemia. While in the intensive care unit, he had an episode of paroxysmal supraventricular tachycardia for which he had to receive 6 mg of adenosine that converted him to sinus rhythm. Since then, he has been started on metoprolol orally and his rhythm has been stable. His condition has improved and therefore we are going to discharge him home today. His renal function has normalized, but he has developed some thrombocytopenia which is thought to be secondary to Lovenox that patient was receiving initially. Two days ago Lovenox was discontinued and I am going to repeat CBC this morning to make sure that his platelet counts are stable. He can later on go home if platelet counts are established to be getting better. Diabetic teaching has been provided to the patient and he is advised to monitor his glucose levels closely at home. He has been started on metformin 1000 mg twice daily that he will continue. If his glucose levels remain elevated above 200 most of the times, I have advised him to then start taking glimepiride 2 mg a day. He will have regular exercise and also start taking aspirin 81 mg daily. I advised him to follow up with his PCP, Dr. Hickey, next week. DISCHARGE MEDICATIONS: 1. Metformin 1000 mg orally twice daily. 2. Glimepiride 2 mg orally once daily a week later. 3. Metoprolol ER 50 mg orally once daily. 4. Atorvastatin 40 mg orally once daily at bedtime. 5. Aspirin 81 mg orally once daily. FOLLOWUP: He will follow with Dr. Hickey in approximately one week. CONDITION: Stable. DISPOSITION: Home. DIET: Diabetic diet. Furthermore, he is advised to monitor his glucose levels 3 times a day. cc: Jaren Pierre MD
== END 2018-12-04 15:42 | disposition home or self-care (01) | DRG 638 ==
LOC: P.ICU 10:38 → P.ED 10:38 → SUATTDRO 10:39 → OBSVTOIN 10:39 → P.MEDSURG 12-03 19:16
PROVIDERS: ATTEND Internal Medicine
CPT/HCPCS: 36415; 71020; 71046; 80048; 80053; 80061; 80076; 81001; 81003; 82009; 82805; 82948; 83036; 83605; 83735; 84100; 84484; 85025; 87040; 87088; 93005; 96360; 96361; 99285; 99291; A9270; C9113; J0150; J0153; J1650; J1815; J3480; J7030; J7042; J7070; S0164; XXXXX